=== PATIENT | male | born 1985 | race Caucasian/White ===

== ENCOUNTER 2019-03-05 18:50 | Emergency (ER) | payer OTHER ==
[~2019-03-05] VITALS: Ht 172.7 cm; Wt 88.8 kg
--- NOTE | 2019-03-05 18:56 | ED.ADGEN ---
Adult General Chief Complaint Chief Complaint ".. I ve got severe rectal pain.. I think I rupture one my hemorrhoids.. I ve had them before... I ve been putting stuff on.. it.... but this is the worse one I ve ever had... but something happen and I started bleeding .. 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 Pt. has history of periodic hemorrhoid flares for the last several years. Pt. has been using prior Rx. meds in attempts to treat his current hemorrhoid exacerbation. Pt. has had some constipation. Patient also has been sitting a lot at his job at [employer] in . Patient does not use alcohol. No history of colitis with him or family members. No specific history of trauma. No history immunosuppression. No history of recent travel. No history of coagulopathy. No hx rectal sex or use of instruments. No history of health issues. Is up-to-date with vaccinations. Patient follows at [facility] for care. Review of Systems Review of Systems Constitutional: Denies fever or chills [] Eyes: Denies change in visual acuity, redness, or eye pain [] HENT: Denies nasal congestion or sore throat [] Respiratory: Denies cough or shortness of breath [] Cardiovascular: No additional information not addressed in HPI [] GI: Denies abdominal pain, nausea, vomiting, bloody stools or diarrhea []complaints of severe rectal pain and bleeding : Denies dysuria or hematuria [] Musculoskeletal: Denies back pain or joint pain [] Integument: Denies rash or skin lesions [] Neurologic: Denies headache, focal weakness or sensory changes [] Endocrine: Denies polyuria or polydipsia [] All other systems were reviewed and found to be within normal limits, except as documented in this note. Family History Family History Noncontributory Current Medications Current Medications Current Medications Medications (Trade) Dose Ordered Sig/Kati Start Time Stop Time Status Last Admin Dose Admin Ceftriaxone Sodium (Rocephin Im) 1 gm 1X ONCE 03/05/19 20:00 03/05/19 20:02 DC 03/05/19 20:22 1 GM Ketorolac Tromethamine (Toradol Im) 60 mg 1X ONCE 03/05/19 20:00 03/05/19 20:02 DC 03/05/19 20:23 60 MG Lidocaine HCl 20 ml 1X ONCE 03/05/19 20:00 03/05/19 20:02 DC Metronidazole (Flagyl) 500 mg 1X ONCE 03/05/19 20:00 03/05/19 20:02 DC 03/05/19 20:23 500 MG Morphine Sulfate (Morphine 10mg Syringe) 10 mg 1X ONCE 03/05/19 19:30 03/05/19 19:51 DC 03/05/19 19:25 10 MG Allergies Allergies Allergies Coded Allergies Type Severity Reaction Last Updated Verified No Known Drug Allergies 03/05/19 No Physical Exam Physical Exam Constitutional: Well developed, well nourished, in acute distress, non-toxic appearance. [] HENT: Normocephalic, atraumatic, bilateral external ears normal, oropharynx [address], no oral exudates, nose normal. [] Eyes: PERRLA, EOMI, conjunctiva normal, no discharge. [] Neck: Normal range of motion, no tenderness, supple, no stridor. [] Cardiovascular:Heart rate regular rhythm, no murmur [] Lungs & Thorax: Bilateral breath sounds clear to auscultation [] Abdomen: Bowel sounds normal, soft, no tenderness, no masses, no pulsatile masses. [] Patient has approximately 4 x 6 cm thrombosed rectal hemorrhoid. Pt. has pointing pus abscess and bleeding. Skin: Warm, dry, no erythema, no rash. [] Back: No tenderness, no CVA tenderness. [] Extremities: No tenderness, no cyanosis, no clubbing, ROM intact, no edema. [] Neurologic: Alert and oriented X 3, normal motor function, normal sensory function, no focal deficits noted. [] Psychologic: Affect anxious, judgement normal, mood normal. [] Current Patient Data Vital Signs Vital Signs Date Time Temp Pulse Resp B/P (MAP) Pulse Ox O2 Delivery O2 Flow Rate FiO2 03/05/19 19:00 99.2 77 18 96 Room Air EKG EKG [] Radiology/Procedures Radiology/Procedures [] Course & Med Decision Making Course & Med Decision Making Pertinent Labs and Imaging studies reviewed. (See chart for details) Discussed options of treatment with pt. Pt. elects not to be admitted, and agrees to ED drainage of pus pocket and thrombosed hemorrhoid. Risks discussed. Procedure Note:- I and D of thrombosed hemorrhoid. Cleaned area with Betadine. Injected hemorrhoid with lidocaine. Incised hemorrhoid surface with 10 blade with drainage of pus and thrombosis. Two vicryl 3-0 suture s placed one at each end of hemorrhoid structure. Abscess did not appear to tract up anus or into sphincter area. Appeared to have adequate hemostasis. Patient is to do frequent sitz baths and rinses after stooling. Patient to keep stool soft. Patient take Keflex 500 and Flagyl 500 -3 times a day. Patient follow- up with primary care. Patient encouraged follow-up with a rectal surgeon or GI. Patient to use a life saver pillow or cushion. Patient return if any concerns. Pt. to expect some bleeding at site. [] Final Impression Final Impression 1. Thrombosed Hemorrhoid with Abscess[] Dragon Disclaimer Dragon Disclaimer This electronic medical record was generated, in whole or in part, using a voice recognition dictation system. Discharge Summary Visit Information Final Diagnosis Problems Medical Problems: (1) Abscess Status: Acute (2) Hemorrhoid thrombosis Status: Acute Brief Hospital Course Allergies Allergies Coded Allergies Type Severity Reaction Last Updated Verified No Known Drug Allergies 03/05/19 No Vital Signs Vital Signs Date Time Temp Pulse Resp B/P (MAP) Pulse Ox O2 Delivery O2 Flow Rate FiO2 03/05/19 19:00 99.2 77 18 96 Room Air Brief Hospital Course Mr. Hanna is a 33 old male who presented with severe rectal pain, thrombosed hemorrhoid and abscess. Pt. elected I and D. ] Discharge Information Condition at Discharge: Improved, Stable Disposition/Orders: D/C to Home Dischare Medications Current Medications Morphine Sulfate (Morphine 10mg Syringe) 10 mg STK-MED ONCE .ROUTE ; Start 03/05/19 at 19:24; Stop 03/05/19 at 19:25; Status DC Morphine Sulfate (Morphine 10mg Syringe) 10 mg 1X ONCE SQ Last administered on 03/05/19at 19:25; Admin Dose 10 MG; Start 03/05/19 at 19:30; Stop 03/05/19 at 19:51; Status DC Ketorolac Tromethamine (Toradol Im) 60 mg 1X ONCE IM Last administered on 03/05/19at 20:23; Admin Dose 60 MG; Start 03/05/19 at 20:00; Stop 03/05/19 at 20:02; Status DC Ceftriaxone Sodium (Rocephin Im) 1 gm 1X ONCE IM Last administered on 03/05/19at 20:22; Admin Dose 1 GM; Start 03/05/19 at 20:00; Stop 03/05/19 at 20:02; Status DC Metronidazole (Flagyl) 500 mg 1X ONCE PO Last administered on 03/05/19at 20:23; Admin Dose 500 MG; Start 03/05/19 at 20:00; Stop 03/05/19 at 20:02; Status DC Lidocaine HCl 20 ml 1X ONCE IJ ; Start 03/05/19 at 20:00; Stop 03/05/19 at 20:02; Status DC Active Scripts Active Zofran (Ondansetron Hcl) 8 Mg Tablet 8 Mg PO QIDPRN PRN Flagyl (Metronidazole) 500 Mg Tablet 500 Mg PO TID 10 Days Keflex (Cephalexin) 500 Mg Capsule 500 Mg PO TID 10 Days Hydrocodone-Ibuprofen 7.5-200 (Hydrocodone/Ibuprofen) 1 Each Tablet 1 Tab PO PRN Q6HRS PRN Reported Tucks (Witch Leslye) 1 Each Med..pad 1 Each TP PRN PRN [tucks cream] [ibuprofen] Chantix (Varenicline Tartrate) 1 Each Tab.ds.pk 1 Each PO DAILY Dragon Disclaimer This chart was dictated in whole or in part using Voice Recognition software in a busy, high-work load, and often noisy Emergency Department environment. It may contain unintended and wholly unrecognized errors or omissions. STACY ANNA MD Mar 05, 2019 18:56
[2019-03-05 19:00] VITALS: BP 142/72
[2019-03-05] MEDS ORDERED: VARE1TAB20 PO (19:14)
[2019-03-05] MEDS ORDERED: ibuprofen (19:15)
[2019-03-05] MEDS ORDERED: WITC1MED18 TP (19:15)
[2019-03-05] MEDS ORDERED: TUCKS (19:15)
[2019-03-05] MEDS ORDERED: MORPHINE SULFATE 10 MG/ML SYRINGE. ONE (19:24)
[2019-03-05] MEDS ORDERED: MORPHINE SULFATE 10 MG/ML SYRINGE. SQ ONE (19:30)
[2019-03-05] MEDS ORDERED: LIDOCAINE 2% 20 ML VIAL. IJ ONE (20:00)
[2019-03-05] MEDS ORDERED: metroNIDAZOLE 500 MG TABLET PO ONE (20:00)
[2019-03-05] MEDS ORDERED: cefTRIAXone IM 1 GM VIAL IM ONE (20:00)
[2019-03-05] MEDS ORDERED: KETOROLAC 60 MG/2 ML VIAL. IM ONE (20:00)
[2019-03-05] MEDS ORDERED: CEPH-264 PO (20:01)
[2019-03-05] MEDS ORDERED: ONDA8TAB9 PO (20:01)
[2019-03-05] MEDS ORDERED: HYDR-1179 PO (20:01)
[2019-03-05] MEDS ORDERED: METR500T PO (20:01)
== END 2019-03-05 20:33 | disposition home or self-care (01) ==
LOC: ER 18:50
DX: K64.5 Perianal venous thrombosis (principal); K61.1 Rectal abscess; K59.00 Constipation, unspecified
CPT/HCPCS: 46083; 96372; 99284; J0696; J1885; J2270